=== PATIENT | male | born 1965 | race Caucasian/White ===

== ENCOUNTER 2017-11-30 11:08 | Observation (INO) | payer OTHER ==
[2017-11-30 11:15] VITALS: BMI 29.2
[2017-11-30] MEDS ORDERED: MAG HYDROX/AL HYDROX/SIMETH 30 ML UNIT-DOSE CUP PO ONE (13:26)
[2017-11-30] MEDS ORDERED: SODIUM CHLORIDE 1,000 ML IV STA (13:26)
[2017-11-30] MEDS ORDERED: FAMOTIDINE 20 MG/50 ML IVPB 20 MG/50 ML MG IVPB ONE ×2 (13:30→13:45)
[2017-11-30] MEDS ORDERED: MAG HYDROX/AL HYDROX/SIMETH 30 ML UNIT-DOSE CUP ONE (13:45)
[2017-11-30 14:04] LABS: BASO % 0.5 % (0-2.0); EOS % 1.1 % (0-4.5); HEMATOCRIT 43.5 % (35.4-49); MCH 29.1 pg (25.7-33.7); MCHC 34.3 g/dl (32.0-35.9); MEAN CELL VOLUME 84.8 fl (80-96); MEAN PLT VOLUME 7.6 fl (7.5-11.1); NEUT % 76.4 % (42.8-82.8); PLATELET COUNT 261 K/MM3 (134-434); RBC 5.13 M/mm3 (4.00-5.60); RDW 13.5 % (11.9-15.9); WHITE BLOOD COUNT 8.7 K/mm3 (4.0-10.0)
--- NOTE | 2017-11-30 14:09 | PDOC ---
History of Present Illness - General Chief Complaint: Palpitations Stated Complaint: PALPITATIONS Time Seen by Provider: 11/30/17 12:50 - History of Present Illness Initial Comments: 11/30/17 14:03 "The patient is a 52 year old male, with a significant past medical history of GERD and high cholesterol, who presents to the emergency department via ems with chest pain and palpitations today. 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 He states he felt very gassy and had pressure-like pain in his epigastric region radiating to his chest. He states he then became flushed and felt his heart racing. He reports taking a [employer] aspirin at work without relief of symptoms. Pt reports some residual discomfort in his epigastric region. Denies SOB. He denies headache. He denies leg pain or swelling. He denies fever, chills, nausea, vomit, diarrhea and constipation. He denies dysuria, frequency, urgency and hematuria. Allergies: NKDA Family Hx: CAD with stents (maternal) " Past History - Past Medical History Allergies/Adverse Reactions: Allergies Allergy/AdvReac Type Severity Reaction Status Date / Time Penicillins Allergy Verified 11/30/17 11:12 COPD: No GI Disorders: Yes (GERD) Hypercholesterolemia: Yes - Suicide/Smoking/Psychosocial Hx Smoking History: Never smoked Have you smoked in the past 12 months: No Information on smoking cessation initiated: No Hx Alcohol Use: No Drug/Substance Use Hx: No Substance Use Type: None Review of Systems - Review of Systems Comments:: 11/30/17 14:06 """GENERAL/CONSTITUTIONAL: No fever or chills. No weakness. HEAD, EYES, EARS, NOSE AND THROAT: No change in vision. No ear pain or discharge. No sore throat. CARDIOVASCULAR: (+) chest pain, palpitations. No shortness of breath. RESPIRATORY: No cough, wheezing, or hemoptysis. GASTROINTESTINAL: (+) epigastric pain. No nausea, vomiting, diarrhea or constipation. GENITOURINARY: No dysuria, frequency, or change in urination. MUSCULOSKELETAL: No joint or muscle swelling or pain. No neck or back pain. SKIN: No rash NEUROLOGIC: No headache, vertigo, loss of consciousness, or change in strength/ sensation. ENDOCRINE: No increased thirst. No abnormal weight change. HEMATOLOGIC/LYMPHATIC: No anemia, easy bleeding, or history of blood clots. ALLERGIC/IMMUNOLOGIC: No hives or skin allergy. """ *Physical Exam - Vital Signs Last Vital Signs Temp Pulse Resp BP Pulse Ox 99.1 F 100 H 18 139/97 100 11/30/17 11:13 11/30/17 11:13 11/30/17 11:13 11/30/17 11:13 11/30/17 11:13 - Physical Exam Comments: 11/30/17 14:06 """GENERAL: Awake, alert, and fully oriented, in no acute distress. HEAD: No signs of trauma EYES: PERRLA, EOMI, sclera anicteric, conjunctiva clear ENT: Auricles normal inspection, hearing grossly normal, nares patent, oropharynx clear without exudates. Moist mucosa NECK: Nontender, no stepoffs, Normal ROM, supple, no lymphadenopathy, JVD, or masses LUNGS: Breath sounds equal, clear to auscultation bilaterally. No wheezes, and no crackles HEART: Regular rate and rhythm, normal S1 and S2, no murmurs, rubs or gallops ABDOMEN: +epigastric TTP, normoactive bowel sounds. No guarding, no rebound. No masses EXTREMITIES: Normal range of motion, no edema. No clubbing or cyanosis. No cords, erythema, or tenderness NEUROLOGICAL: Cranial nerves II through XII intact. 5/5 strength and sensation in all extremities, Normal speech, normal gait, normal cerebellar function SKIN: Warm, Dry, normal turgor, no rashes or lesions noted. """ Heart Score/ECG Review - History History: Slightly suspicious - Electrocardiogram EKG: Normal - Age Age: 45-65 - Risk Factors Risk Factors Heart Score: Yes Hx Hypercholesterolemia, Yes Hx Hypertension, Yes Positive family hx of cardiac disease Based on the list above the patient has:: >/=3 risk factors or Hx atherosclerotic disease - Troponin Troponin: 1-3x normal limit - Score Heart Score - Total: 4 - ECG Impressions Comment:: 11/30/17 14:07 NSR, no LIZZY/STDs, no TWIs, axis wnl, intervals wnl, rate 107 ED Treatment Course - LABORATORY CBC & Chemistry Diagram: 11/30/17 12:53 11/30/17 12:53 - ADDITIONAL ORDERS Additional order review: Laboratory Results 11/30/17 11/30/17 11/30/17 12:53 12:53 12:53 PT with INR 11.50 INR 1.02 PTT (Actin FS) 35.7 H Sodium 136 Potassium 5.6 H Chloride 102 Carbon Dioxide 27 Anion Gap 7 L BUN 10 Creatinine 1.1 Creat Clearance w eGFR > 60 Random Glucose 89 Calcium 9.1 Total Bilirubin 0.6 AST 36 ALT 32 Alkaline Phosphatase 113 Creatine Kinase 246 Creatine Kinase Index 0.7 CK-MB (CK-2) 1.892 Troponin I 0.07 H Total Protein 8.7 H Albumin 4.2 Lipase 161 11/30/17 12:53 RBC 5.13 MCV 84.8 MCHC 34.3 RDW 13.5 MPV 7.6 Neutrophils % 76.4 Lymphocytes % 15.0 Monocytes % 7.0 Eosinophils % 1.1 Basophils % 0.5 - RADIOLOGY Radiology Studies Ordered: Category Date Time Status CHEST PA & LAT [RAD] Stat Radiology 11/30/17 13:25 Taken - Medications Given in the ED: ED Medications Discontinued Medications Generic Name Dose Route Start Last Admin Trade Name Freq PRN Reason Stop Dose Admin Al Hydroxide/Mg Hydroxide 30 ml 11/30/17 13:26 11/30/17 14:00 Mylanta Oral Suspension - PO 11/30/17 13:27 30 ml ONCE ONE Administration Famotidine/Sodium Chloride 20 mg in 50 mls @ 100 mls/hr 11/30/17 13:30 14:00 Pepcid 20 Mg Premixed Ivpb - IVPB 11/30/17 13:59 100 mls/hr ONCE ONE Administration Sodium Chloride 1,000 mls @ 1,000 mls/hr 11/30/17 13:26 11/30/17 14:00 Normal Saline - IV 11/30/17 14:25 1,000 mls/hr ASDIR STA Administration Medical Decision Making - Medical Decision Making 11/30/17 14:09 52 M with epigastric pain radiating to chest and palpitations. Likely GI- related as pt has epigastric tenderness on exam. Pt has a few cardiac risk factors but pain is very atypical and EKG is nonischemic. 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 - Labs, trop, lipase, COHb - CXR - GI cocktail 11/30/17 15:32 Labs notable for trop 0.07. CXR clear Pt reassessed - reports only mild residual chest pain after GI cocktail. Will continue to trend troponins. Admit tele. 11/30/17 15:[address] Anderson *DC/Admit/Observation/Transfer Diagnosis at time of Disposition: Chest pain - Discharge Dispostion Decision to Admit order: Yes - Referrals - Patient Instructions - Post Discharge Activity - Attestations Physician Attestion: 11/30/17 15:37 I, Dr. Yair Leonard MD, attest that this document has been prepared under my direction and personally reviewed by me in its entirety. I further attest, that it accurately reflects all work, treatment, procedures and medical decision -making performed by me.
[2017-11-30 14:17] LABS: INR 1.02 (0.82-1.09); PROTHROMBIN TIME (PATIENT) 11.5 SEC (9.7-13.0)
[2017-11-30 14:20] LABS: ACTIVATED PTT 35.7 SECONDS (26.9-34.4)
[2017-11-30 14:30] LABS: ALBUMIN 4.2 g/dl (3.4-5.0); ANION GAP 7 (8-16); BILIRUBIN,TOTAL 0.6 mg/dL (0.2-1.0); BLOOD UREA NITROGEN 10 mg/dL (7-18); CALCIUM 9.1 mg/dL (8.5-10.1); CHLORIDE 102 mmol/L (98-107); CO2 27 mmol/L (21-32); CREATININE 1.1 mg/dL (0.7-1.3); GLUCOSE,RANDOM 89 mg/dL (74-106); LIPASE 161 U/L (73-393); SGPT/ALT 32 U/L (12-78); SODIUM 136 mmol/L (136-145); TOT PROT 8.7 g/dl (6.4-8.2)
[2017-11-30 14:31] LABS: ALK PHOS 113 U/L (45-117)
[2017-11-30 14:33] LABS: POTASSIUM 5.6 mmol/L (3.5-5.1); SGOT/AST 36 U/L (15-37)
[2017-11-30] MEDS ORDERED: ASPIRIN 325 MG TABLET PO ONE (15:15)
[2017-11-30] MEDS ORDERED: ASPIRIN 325 MG TABLET ONE (15:54)
--- NOTE | 2017-11-30 18:47 | HP ---
Admitting History and Physical - Primary Care Physician PCP: Yoli Anderson - Admission Chief Complaint: chest pain History of Present Illness: 52 year old male, with a significant past medical history of GERD and high cholesterol, who presents to the emergency department via ems with chest pain and palpitations today. 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 He states he felt very gassy and had pressure-like pain in his epigastric region radiating to his chest. He states he then became flushed and felt his heart racing. He reports taking a [employer] aspirin at work without relief of symptoms. Pt reports some residual discomfort in his epigastric region. Denies SOB. - Past Medical History Cardiovascular: Yes: Hyperlipdemia Gastrointestinal: Yes: GERD - Smoking History Smoking history: Never smoked Have you smoked in the past 12 months: No - Alcohol/Substance Use Hx Alcohol Use: No Home Medications - Allergies Allergies/Adverse Reactions: Allergies Allergy/AdvReac Type Severity Reaction Status Date / Time Penicillins Allergy Verified 11/30/17 11:12 - Home Medications Home Medications: Ambulatory Orders Atorvastatin Ca [Lipitor] 20 mg PO HS 11/30/17 Ranitidine [Zantac -] 150 mg PO DAILY 11/30/17 Aspirin [ASA -] 325 mg PO DAILY #30 tablet 12/01/17 Metoprolol Tartrate [Lopressor -] 25 mg PO BID #60 tablet 12/01/17 [place]-3 Acid Ethyl Esters [Lovaza -] 2 gm PO BID #120 cap 12/01/17 Review of Systems - Review of Systems Cardiovascular: reports: Chest Pain Physical Examination Vital Signs: Vital Signs Temperature 98.8 F 11/30/17 18:07 Pulse Rate 107 H 11/30/17 18:07 Respiratory Rate 98 H 11/30/17 18:07 Blood Pressure 132/96 11/30/17 18:07 O2 Sat by Pulse Oximetry (%) 98 11/30/17 18:07 Constitutional: Yes: No Distress HENT: Yes: Atraumatic Neck: Yes: Supple Cardiovascular: Yes: Regular Rate and Rhythm Respiratory: Yes: CTA Bilaterally Gastrointestinal: Yes: Normal Bowel Sounds Extremities: Yes: WNL Edema: No Peripheral Pulses WNL: Yes Neurological: Yes: Alert, Oriented Labs: CBC, BMP 11/30/17 12:53 11/30/17 12:53 Problem List - Problems (1) Chest pain Assessment/Plan: follow cardiac enzymes cardiology consult for stress test per cardiology prn oxygen and nitrates Code(s): R07.9 - CHEST PAIN, UNSPECIFIED (2) Hyperlipidemia Assessment/Plan: on meds Code(s): E78.5 - HYPERLIPIDEMIA, UNSPECIFIED Assessment/Plan Laboratory Tests 11/30/17 11/30/17 11/30/17 12:53 12:53 12:53 WBC 8.7 RBC 5.13 Hgb 15.0 Hct 43.5 MCV 84.8 MCH 29.1 MCHC 34.3 RDW 13.5 Plt Count 261 MPV 7.6 Neutrophils % 76.4 Lymphocytes % 15.0 Monocytes % 7.0 Eosinophils % 1.1 Basophils % 0.5 PT with INR 11.50 INR 1.02 PTT (Actin FS) 35.7 H Sodium Potassium Chloride Carbon Dioxide Anion Gap BUN Creatinine Creat Clearance w eGFR Random Glucose Calcium Total Bilirubin AST ALT Alkaline Phosphatase Creatine Kinase 246 Creatine Kinase Index 0.7 CK-MB (CK-2) 1.892 Troponin I 0.07 H Total Protein Albumin Lipase 11/30/17 12:53 WBC RBC Hgb Hct MCV MCH MCHC RDW Plt Count MPV Neutrophils % Lymphocytes % Monocytes % Eosinophils % Basophils % PT with INR INR PTT (Actin FS) Sodium 136 Potassium 5.6 H Chloride 102 Carbon Dioxide 27 Anion Gap 7 L BUN 10 Creatinine 1.1 Creat Clearance w eGFR > 60 Random Glucose 89 Calcium 9.1 Total Bilirubin 0.6 AST 36 ALT 32 Alkaline Phosphatase 113 Creatine Kinase Creatine Kinase Index CK-MB (CK-2) Troponin I Total Protein 8.7 H Albumin 4.2 Lipase 161 Active Medications Generic Name Dose Route Start Last Admin Trade Name Freq PRN Reason Stop Dose Admin Aspirin 325 mg 12/01/17 10:00 12/01/17 10:09 Asa - PO 325 mg DAILY DEANNE Administration Atorvastatin Calcium 80 mg 12/01/17 11:04 Lipitor - PO HS DEANNE Metoprolol Tartrate 25 mg 12/01/17 11:15 12/01/17 11:15 Lopressor - PO Not Given BID [facility] [id number] Ethyl Esters 2 gm 12/01/17 11:15 12/01/17 13:41 Lovaza - PO Not Given BID DEANNE Ranitidine HCl 150 mg 12/01/17 10:00 12/01/17 10:09 Zantac - PO 150 mg DAILY DEANNE Administration
[2017-11-30] MEDS ORDERED: ATORVASTATIN CA 20 MG TABLET (FP) PO SCH (22:00)
[2017-11-30] MEDS: ENOXAPARIN NA (PORCINE) 80 MG/0.8 ML DISP.SYRIN SQ SCH (22:34)
[2017-12-01 07:33] LABS: CHOLESTEROL 187 mg/dL (50-200); HDL CHOLESTEROL 37 mg/dL (40-60); TRIGLYCERIDES 452 mg/dL (35-160)
[2017-12-01] MEDS ORDERED: RANITIDINE HCL 150 MG TABLET (FP) PO SCH (10:00)
[2017-12-01] MEDS ORDERED: ASPIRIN 325 MG TABLET PO SCH (10:00)
[2017-12-01] MEDS: ENOXAPARIN NA (PORCINE) 80 MG/0.8 ML DISP.SYRIN SQ SCH (10:09)
--- NOTE | 2017-12-01 10:53 | PN ---
Progress Note (short form) - Note Progress Note: Chief Complaint: Events noted, notes reviewed, chest pain and palpitations, deies any dyspnea History of Present Illness: Seen and examined on telemetry. Full consult dictated - Current Medication List Current Medications Aspirin (Asa -) 325 mg PO DAILY [facility] Last Admin: 12/01/17 10:09 Dose: 325 mg Atorvastatin Calcium (Lipitor -) 20 mg PO HS [facility] Last Admin: 11/30/17 21:05 Dose: 20 mg Enoxaparin Sodium (Lovenox -) 80 mg SQ BID [facility] Last Admin: 12/01/17 10:09 Dose: 80 mg Ranitidine HCl (Zantac -) 150 mg PO DAILY [facility] Last Admin: 12/01/17 10:09 Dose: 150 mg - Review of Systems Constitutional: denies: Chills, Fever Cardiovascular: as noted above Respiratory: denies: Cough or Sputum Production Gastrointestinal: denies: Nausea, Vomiting, Diarrhea, Constipation or Abdominal Discomfort Musculoskeletal: No Symptoms Reported Neurological: denies: Headache - Objective Vital Signs: Last Vital Signs Temp Pulse Resp BP Pulse Ox 98.2 F 81 18 106/68 97 12/01/17 05:21 12/01/17 05:21 12/01/17 05:21 12/01/17 05:21 12/01/17 02:47 Intake & Output 11/28/17 11/29/17 11/30/17 12/01/17 23:59 23:59 23:59 23:59 Intake Total 10 240 Balance 10 240 Weight 187 lb Constitutional: No Distress, Calm Neck: Supple Negative JVD No Bruit Cardiovascular: S1 S2 Regular Rate and Rhythm Mid Systolic Click No Murmurs Respiratory: Clear to A&P Bilaterally Gastrointestinal: Soft Benign Normal Bowel Sounds Ext: Negative Edema Labs: Troponin, BNP 11/30/17 11/30/17 12/01/17 12:53 20:00 02:00 Troponin I 0.07 H 0.18 H D 0.13 H CBC, BMP 11/30/17 12:53 11/30/17 12:53 Hepatic Panel Total Bilirubin 0.6 mg/dL (0.2-1.0) 11/30/17 12:53 AST 36 U/L (15-37) 11/30/17 12:53 ALT 32 U/L (12-78) 11/30/17 12:53 Alkaline Phosphatase 113 U/L (45-117) 11/30/17 12:53 Albumin 4.2 g/dl (3.4-5.0) 11/30/17 12:53 INR, PTT INR 1.02 (0.82-1.09) 11/30/17 12:53 Assessment/Plan ASSESSMENT: 1. Chest pain syndrome with mildly elevated Troponin I, demand ischemia CAD angina pectoris to be considered 2. Probable diastolic LV dysfunction with class 0 NYHA classification LV failure 3. Palpitations with no clinical evidence of sustained arrhythmia 4. Hypercholesterolemia/hypertriglyceridemia 5. Hyperkalemia, etiology to be determined PLAN: 1. Add B-Blockers, Lopressor 2. D/C Lovenox and continue ASA +/- Plavix, pending results of testing 3. Continue Lipitor but increase dosage 4. Add Lovaza 5. Evaluation and correction of Hyperkalemia 6. Echocardiography to evaluate LV size and function 7. MPI study to assess ischemic burden Further recommendation pending results of above planned testing Fabiola Ahmadi MD
[2017-12-01] MEDS ORDERED: ATORVASTATIN CA 80 MG TABLET (FP) PO SCH (11:04)
[2017-12-01] MEDS ORDERED: METOPROLOL TARTRATE 25 MG TABLET (FP) PO SCH (11:15)
[2017-12-01] MEDS ORDERED: OMEGA-3 ACID ETHYL ESTERS (FATTY-ACIDS) 1 GM CAPSULE (FP) PO SCH (11:15)
--- NOTE | 2017-12-01 11:33 | CONS ---
DATE OF CONSULTATION: 12/01/2017 Consultation requested by Yoli Anderson MD CHIEF COMPLAINT: Chest pain, palpitations, cardiovascular evaluation. HISTORY OF PRESENT ILLNESS: A 52-year-old male of descent with known history of hypercholesterolemia, prior history of tobacco abuse, strong family history of premature coronary artery disease, who denied hypertensive cardiovascular disease/diabetes mellitus, who presented to [facility] with epigastric and lower sternal chest discomfort sudden onset with associated palpitations. Symptoms persisted, in view of which the patient presented to the emergency room for further evaluation. Patient denied any associated diaphoresis. Patient did not report any dyspnea. Patient denied any history of orthopnea, paroxysmal nocturnal dyspnea or peripheral edema. Patient denied any dizziness, lightheadedness or syncope. The patient denies any history of fatigue and tiredness. Electrocardiogram was noted without any acute changes, but he was noted to have mildly elevated troponin-I level consistent with demand ischemia. PAST MEDICAL HISTORY: Hypercholesterolemia. Prior stress testing which was performed several years ago. According to the patient, it was negative. PAST SURGICAL HISTORY: None. SOCIAL HISTORY: Remote history of tobacco abuse. FAMILY HISTORY: Strong family history of premature coronary artery disease. ALLERGIES: PENICILLIN. MEDICAL THERAPY: At home included Lipitor and Zantac for gastroesophageal reflux disease. Currently includes aspirin 325 mg once a day, Lipitor 20 mg once a day, Lovenox 80 mg twice a day, ranitidine 150 mg once a day. REVIEW OF SYSTEMS: Head and neck: Denies headache, photophobia, blurring of vision. Respiratory: No cough or sputum production. Cardiovascular: As noted above. Gastrointestinal: Denies nausea, vomiting, diarrhea, constipation or abdominal discomfort. Musculoskeletal: No symptoms reported. Neurologic: No symptoms reported. PHYSICAL EXAMINATION: Vital signs: Blood pressure is 106/68 mmHg, pulse rate is 81 beats per minute. Head and neck: Pupils equally reactive to light and accommodation. Extraocular muscles are intact. Anicteric sclerae. Negative JVD. No bruit appreciated. Chest: Clear to auscultation and percussion. Cardiovascular: S1, S2, regular. Mid-systolic click. No murmurs or gallop. Abdomen: Soft. Benign. Normoactive bowel sounds. Extremities: Negative edema. Intact distal pulses. No calf tenderness. DIAGNOSTICS: Electrocardiogram reveals sinus rhythm with no acute ST segment or T-wave abnormality. Chest x-ray report was noted. LABORATORY DATA: CBC reveals a white cell count of 8.7, hemoglobin 15.0, platelet count 261. INR 1.02. Basic metabolic profile revealed a sodium 136, potassium 5.6, BUN 10, creatinine 1.1, glucose 89. CPK was noted. Troponin initially 0.07, repeat 0.18, third troponin 0.13. Cholesterol 187, LDL of 91, HDL of 37, triglyceride 452. ASSESSMENT: 1. Chest pain syndrome with mildly elevated initial troponin. Demand ischemia, coronary artery disease, angina pectoris to be considered as a differential. 2. Probable diastolic left ventricular dysfunction with class 0 [place] [employer] classification left ventricular function. 3. Palpitations, with no clinical evidence of sustained arrhythmia. 4. Hypercholesterolemia/hypertriglyceridemia. 5. Hyperkalemia, etiology of which is to be determined. RECOMMENDATIONS: 1. Addition of beta-blockers, Lopressor. 2. Discontinuation of Lovenox and continuation of aspirin plus/minus Plavix pending results of further testing. 3. Continuation of Lipitor, but at increasing dosage. 4. Addition of Lovaza. 5. Evaluation and correction of hyperkalemia. 6. Echocardiography for evaluation of left ventricular size and systolic function. 7. Myocardial perfusion imaging study to assess ischemic burden, considering the above-noted clinical presentation. Further recommendation will depend upon results of above-planned testing. Thank you for the kind referral. ABDIAZIZ MONTANO M.D. [id number]
--- NOTE | 2017-12-01 11:58 | EKG ---
Test Reason : Blood Pressure : / mmHG Vent. Rate : 107 BPM Atrial Rate : 107 BPM P-R Int : 154 ms QRS Dur : 094 ms QT Int : 324 ms P-R-T Axes : 070 084 031 degrees QTc Int : 432 ms SINUS TACHYCARDIA OTHERWISE NORMAL ECG NO PREVIOUS ECGS AVAILABLE Confirmed by MD ASHER, LILIANE ([id number]) on 12/01/2017 11:58:19 AM Referred By: Confirmed By:LILIANE STERLING MD
--- NOTE | 2017-12-01 16:51 | DS ---
Physical Examination Vital Signs: Vital Signs Temperature 98.2 F 12/01/17 14:00 Pulse Rate 94 H 12/01/17 14:00 Respiratory Rate 18 12/01/17 05:21 Blood Pressure 137/80 12/01/17 14:00 O2 Sat by Pulse Oximetry (%) 97 12/01/17 02:47 Constitutional: Yes: No Distress HENT: Yes: Atraumatic Neck: Yes: Supple Cardiovascular: Yes: Regular Rate and Rhythm Respiratory: Yes: CTA Bilaterally Gastrointestinal: Yes: Normal Bowel Sounds Extremities: Yes: WNL Neurological: Yes: Alert, Oriented Labs: CBC, BMP 11/30/17 12:53 11/30/17 12:53 Discharge Summary Reason For Visit: CHEST PAIN Current Active Problems Chest pain (Acute) Hyperlipidemia (Acute) - Instructions - Home Medications Comprehensive Discharge Medication List: Ambulatory Orders Atorvastatin Ca [Lipitor] 20 mg PO HS 11/30/17 Ranitidine [Zantac -] 150 mg PO DAILY 11/30/17 Aspirin [ASA -] 325 mg PO DAILY #30 tablet 12/01/17 Metoprolol Tartrate [Lopressor -] 25 mg PO BID #60 tablet 12/01/17 [place]-3 Acid Ethyl Esters [Lovaza -] 2 gm PO BID #120 cap 12/01/17 fu pmd and cardiology
--- NOTE | 2017-12-01 17:07 | EKG ---
Test Reason : Blood Pressure : / mmHG Vent. Rate : 087 BPM Atrial Rate : 087 BPM P-R Int : 148 ms QRS Dur : 098 ms QT Int : 358 ms P-R-T Axes : 071 083 011 degrees QTc Int : 430 ms NORMAL SINUS RHYTHM NORMAL ECG WHEN COMPARED WITH ECG OF 30-NOV-2017 11:34, NO SIGNIFICANT CHANGE WAS FOUND Confirmed by MD ASHER, LILIANE ([id number]) on 12/01/2017 5:07:45 PM Referred By: ANA FREED DRHRY Confirmed By:LILIANE STERLING MD
[2017-12-01 17:16] VITALS: BP 133/80; PULSE 90; TEMP 98
== END 2017-12-01 19:25 | disposition home or self-care (01) ==
LOC: JER 11:08 → JERBED 15:37 → J4W 17:50
PROVIDERS: ADMIT Internal Medicine; ATTEND Internal Medicine
PROC: 3E033GC Introduction of Other Therapeutic Substance into Peripheral Vein, Percutaneous Approach (ICD-10-PCS; principal; 2017-11-30)
PROC: 3E0337Z Introduction of Electrolytic and Water Balance Substance into Peripheral Vein, Percutaneous Approach (ICD-10-PCS; 2017-11-30)
PROC: 3E013GC Introduction of Other Therapeutic Substance into Subcutaneous Tissue, Percutaneous Approach (ICD-10-PCS; 2017-11-30)
DX: R07.89 Other chest pain (principal); R00.2 Palpitations; E78.5 Hyperlipidemia, unspecified; E87.5 Hyperkalemia; E78.1 Pure hyperglyceridemia; K21.9 Gastro-esophageal reflux disease without esophagitis; R77.8 Other specified abnormalities of plasma proteins; Z82.49 Family history of ischemic heart disease and other diseases of the circulatory system; Z79.84 Long term (current) use of oral hypoglycemic drugs; Z88.0 Allergy status to penicillin
CPT/HCPCS: 36415; 71046-TC-FY; 78452-TC; 80053; 80061; 82550; 82553; 83690; 83721; 84484; 85025; 85610; 85730; 93005; 93010; 93017; 93306-TC; 96365; 96372; 99284-25; A9502; G0378; J7030